=== PATIENT | male | born 1985 | race African-American/Black ===

== ENCOUNTER 2020-01-09 12:00 | Emergency (ER) | payer BC, OTHER ==
[~2020-01-09] VITALS: Ht 193 cm; Wt 88.0 kg
[2020-01-09 12:06] VITALS: BP 125/79
== END 2020-01-09 12:20 | disposition left against medical advice (07) ==
LOC: ER 12:00
DX: M79.674 Pain in right toe(s) (principal); Z53.21 Procedure and treatment not carried out due to patient leaving prior to being seen by health care provider

== ENCOUNTER → 2020-08-20 | Outpatient (CLI) | payer OTHER | END | disposition home or self-care (01) | LOC: MRI 09:35 | PROVIDERS: ATTEND Family Medicine Adult Medicine | DX: S29.012A Strain of muscle and tendon of back wall of thorax, initial encounter (principal); M41.86 Other forms of scoliosis, lumbar region; M54.5 Low back pain; X58.XXXA Exposure to other specified factors, initial encounter; Y92.89 Other specified places as the place of occurrence of the external cause; Y93.89 Activity, other specified; Y99.8 Other external cause status | CPT/HCPCS: 72146 ==